=== PATIENT | female | born 1950 | race Caucasian/White ===

== ENCOUNTER 2021-02-06 12:06 | Emergency (ER) | payer MEDICARE, BC ==
--- NOTE | 2021-02-06 12:11 | EDM.PDOC ---
ED HPI GENERAL MEDICAL PROBLEM - General Chief Complaint: Trauma Stated Complaint: FEEL AT HOME ONTO KNEE Time Seen by Provider: 02/06/21 12:09 Source of Information: Reports: Patient, Family - History of Present Illness INITIAL COMMENTS - FREE TEXT/NARRATIVE: Niecy, 70 year old female, presents with her daughter per private vehicle after she fell at home, striking her knees, and rt wrist. She was carrying plants out of the house and did not lift her foot high enough to clear the threshold, causing her to fall forward striking both knees but the left with most pressure. She also had her right hand/arm, outstretched causing injury/discomfort to the wrist and fifth carpal region. She was able to ambulate thereafter and has typical range of motion to the wrist and knee with discomfort upon moving. Tenderness is predominantly to the lateral anterior aspect of the left knee and the fifth carpal region of the hand/wrist. Onset: Today, Sudden Duration: Minutes: Quality: Reports: Ache, Pressure Severity: Moderate Improves with: Reports: None Worsens with: Reports: Movement Context: Reports: Activity Associated Symptoms: Reports: No Other Symptoms left knee Pain Score (Numeric/FACES): 6 - Related Data Allergies Allergy/AdvReac Type Severity Reaction Status Date / Time aspirin Allergy Unknown Other Verified 02/06/21 12:23 azithromycin Allergy Liver Verified 02/06/21 12:23 Problems Home Meds: Home Meds hydroCHLOROthiazide [Hydrochlorothiazide] 12.5 mg PO DAILY 02/06/21 [History] Past Medical History Cardiovascular History: Reports: High Cholesterol, Hypertension Social & Family History - Family History Family Medical History: No Pertinent Family History - Tobacco Use Tobacco Use Status *Q: Never Tobacco User Tobacco Use Within Last Twelve Months: No ED ROS GENERAL - Review of Systems Review Of Systems: Comprehensive ROS is negative, except as noted in HPI. ED EXAM, GENERAL - Physical Exam Exam: See Below Free Text/Narrative:: Alert, oriented, in no distress. HEENT negative discharge or deformity. There is no respiratory distress with no audible wheezes nor crackles. Cardiac is regular with radial pulse correlating. Tenderness is noted to the right wrist on the anterior surface to the fifth carpal/ulnar side. No deformity is noted. CMS is intact to the digits. Supination pronation intact. Left knee focused examination shows no bruising with mild tenderness to the lateral aspect of the tibial plateau. No crepitus is appreciated. Skin is warm and dry motion is intact stating it is more discomforting with weightbearing status. Course - Vital Signs Last Recorded V/S: Last Vital Signs Temp 98.7 F 02/06/21 12:10 Pulse 73 02/06/21 12:10 Resp 16 02/06/21 12:10 BP 179/91 H 02/06/21 12:10 Pulse Ox 100 02/06/21 12:10 - Orders/Labs/Meds Orders: Active Orders 24 hr Category Date Time Status Knee 3V Lt [CR] Stat Exams 02/06/21 12:31 Ordered Wrist 2V Rt [CR] Stat Exams 02/06/21 12:31 Ordered - Radiology Interpretation Free Text/Narrative:: X-rays obtained show no fracture or dislocation of the wrist nor to the knee. There is mild narrowing of the medial compartment of the left knee likely chronic in nature. Over read is pending. Departure - Departure Time of Disposition: 12:54 Disposition: Home, Self-Care 01 Condition: Good Clinical Impression: Fall at home Qualifiers: Encounter type: initial encounter Qualified Code(s): W19.XXXA - Unspecified fall, initial encounter Knee pain, left Qualifiers: Chronicity: acute Qualified Code(s): M25.562 - Pain in left knee - Discharge Information *PRESCRIPTION DRUG MONITORING PROGRAM REVIEWED*: Not Applicable *COPY OF PRESCRIPTION DRUG MONITORING REPORT IN PATIENT SÁNCHEZ: Not Applicable Instructions: Acute Knee Pain, Adult, [id number], Joint Pain, [id number] Referrals: [facility] [Primary Care Provider] - Forms: ED Department Discharge Additional Instructions: I do not see any evidence of fracture nor dislocation to your x-rays. There is mild degenerative changes to the left knee but no chips or fractures noted. Ice and limit activity for the next 24 hours would be recommended. In the event you do not show improvement or if specific aches or pains continue consideration for follow-up with your clinic provider would be recommended as you may need physical therapy or MRI of the knee if any sequela develops from this incident. Tylenol or Motrin as needed with ice. Sepsis Event Note (ED) - Focused Exam Vital Signs: Vital Signs Temp Pulse Resp BP Pulse Ox 02/06/21 12:10 98.7 F 73 16 179/91 H 100 - Problem List & Annotations (1) Fall at home SNOMED Code(s): 49342763 Code(s): W19.XXXA - UNSPECIFIED FALL, INITIAL ENCOUNTER; Y92.009 - UNSP PLACE IN UNSP NON-INSTITUT (PRIVATE) RESIDENCE PLACE Status: Acute Priority: High Current Visit: Yes Qualifiers: Encounter type: initial encounter Qualified Code(s): W19.XXXA - Unspecified fall, initial encounter; Y92.009 - Unspecified place in unspecified non- institutional (private) residence as the place of occurrence of the external cause (2) Knee pain, left SNOMED Code(s): 8302778341 Code(s): M25.562 - PAIN IN LEFT KNEE Status: Acute Priority: High Current Visit: Yes Qualifiers: Chronicity: acute Qualified Code(s): M25.562 - Pain in left knee (3) Right wrist pain SNOMED Code(s): 69907368 Code(s): M25.531 - PAIN IN RIGHT WRIST Status: Acute Priority: High Current Visit: Yes - Problem List Review Problem List Initiated/Reviewed/Updated: Yes - My Orders Last 24 Hours: My Active Orders 02/06/21 12:31 Knee 3V Lt [CR] Stat Wrist 2V Rt [CR] Stat - Assessment/Plan Last 24 Hours: My Active Orders 02/06/21 12:31 Knee 3V Lt [CR] Stat Wrist 2V Rt [CR] Stat Plan: I do not see any evidence of fracture nor dislocation to your x-rays. There is mild degenerative changes to the left knee but no chips or fractures noted. Ice and limit activity for the next 24 hours would be recommended. In the event you do not show improvement or if specific aches or pains continue consideration for follow-up with your clinic provider would be recommended as you may need physical therapy or MRI of the knee if any sequela develops from this incident. Tylenol or Motrin as needed with ice.
--- NOTE | 2021-02-06 13:27 | CR ---
[id number] RAD/RAD Knee Left 3V EXAM: RAD Knee Left 3V INDICATION: FALL. COMPARISON: None. DISCUSSION: Moderate to advanced tricompartmental osteoarthritis. Moderate joint effusion. No acute fracture or dislocation is identified. IMPRESSION: 1. Moderate to advanced osteoarthritis. 2. Moderate joint effusion. Zane Walters MD 02/06/21 [id number] Thank you for allowing us to participate in the care of your patient.
--- NOTE | 2021-02-06 13:28 | CR ---
[id number] RAD/RAD Wrist Right 2V Exam: RAD Wrist Right 2V Indication:FALL. Comparison: No prior imaging for comparison. Discussion/Impression: Osteoarthritis in the hand and wrist. Findings include joint space narrowing at the first CMC articulation. Subchondral sclerosis and cyst formation in the proximal lunate. No visible fracture. No dislocation. Elijah Gomes MD 02/06/21 [id number] Thank you for allowing us to participate in the care of your patient.
== END 2021-02-06 13:05 | disposition home or self-care (01) ==
LOC: KA.ED 12:06
DX: M25.562 Pain in left knee (principal); I10 Essential (primary) hypertension; Z88.6 Allergy status to analgesic agent; Z88.1 Allergy status to other antibiotic agents; Z79.899 Other long term (current) drug therapy
CPT/HCPCS: 73100-RT; 73562-LT; 99283